=== PATIENT | female | born 1975 | race American Indian/Alaskan Native ===

== ENCOUNTER 2018-08-03 10:32 | Emergency (ER) | payer SELFPAY ==
[2018-08-03 10:59] VITALS: BP 123/86
== END 2018-08-03 14:25 | disposition left against medical advice (07) ==
LOC: ED 10:32
DX: R07.89 Other chest pain (principal); Z53.21 Procedure and treatment not carried out due to patient leaving prior to being seen by health care provider
CPT/HCPCS: 93005; 93010

== ENCOUNTER 2018-12-19 21:16 | Emergency (ER) | payer OTHER ==
--- NOTE | 2018-12-19 21:30 | Event Note ---
ED Screening Note Date of service: 12/19/18 Time: 21:29 ED Screening Note: 42 y/o female c/o NIXON since . History of migraines. pain 8.5/10. This initial assessment/diagnostic orders/clinical plan/treatment(s) is/are subject to change based on patients health status, clinical progression and re- assessment by fellow clinical providers in the ED. Further treatment and workup at subsequent clinical providers discretion. Patient/guardian urged not to elope from the ED as their condition may be serious if not clinically assessed and managed. Initial orders include:
[2018-12-20] MEDS ORDERED: TORADOL IM ONE (00:08)
[2018-12-20] MEDS ORDERED: BENADRYL PO ONE (00:08)
[2018-12-20] MEDS ORDERED: REGLAN PO ONE (00:08)
--- NOTE | 2018-12-20 00:08 | Emergency Department Report ---
ED Headache HPI - General Chief Complaint: Headache Stated Complaint: MIRGRAINE/NAUSEA Time Seen by Provider: 12/19/18 23:59 - History of Present Illness Initial Comments: Patient is a 42-year-old female who presents to the emergency Department with complaints of a frontal headache that began 2 days ago. She states she has a past medical history of migraines and ran out of her Fioricet. she states she recently moved here and has not found a PCP. She has associated photophobia, nausea, one episode of emesis. She does not report any neck stiffness or fever. She states this headache feels exactly the same as her previous migraines. She denies any vision changes, numbness, weakness. her only other PMHx is anxiety. allergy to PCN. LNMP: december 16 Allergies/Adverse Reactions: Allergies Penicillins Allergy (Verified 08/03/18 10:56) Hives Home Medications: Ambulatory Orders Butalb/Acetaminophen/Caffeine [Fioricet 50-300-40 mg CAP] 1 cap PO Q8HR PRN #14 cap 12/20/18 ED Review of Systems ROS: Stated complaint: MIRGRAINE/NAUSEA Other details as noted in HPI Comment: All other systems reviewed and negative ED Past Medical Hx - Past Medical History Previous Medical History?: Yes Hx Headaches / Migraines: Yes Additional medical history: Hernia - Surgical History Past Surgical History?: Yes Additional Surgical History: C sect x 3, tumtuck, right ankle, 2 Hernia repairs - Social History Smoking Status: Never Smoker Substance Use Type: None - Medications Home Medications: Home Medications Medication Instructions Recorded Confirmed Last Taken Type Butalb/Acetaminophen/Caffeine 1 cap PO Q8HR PRN #14 cap 12/20/18 Unknown Rx [Fioricet 50-300-40 mg CAP] ED Physical Exam - General Limitations: No Limitations General appearance: alert, in no apparent distress - Head Head exam: Present: atraumatic, normocephalic - Eye Eye exam: Present: normal appearance, PERRL, EOMI. Absent: nystagmus - ENT ENT exam: Present: mucous membranes moist - Neck Neck exam: Present: full ROM. Absent: meningismus - Respiratory Respiratory exam: Present: normal lung sounds bilaterally. Absent: respiratory distress, wheezes, rales, rhonchi, stridor, chest wall tenderness, accessory muscle use, decreased breath sounds, prolonged expiratory - Cardiovascular Cardiovascular Exam: Present: regular rate, normal rhythm, normal heart sounds. Absent: systolic murmur, diastolic murmur, rubs, gallop - Neurological Exam Neurological exam: Present: alert, oriented X3, CN II-XII intact, normal gait, other (equal rn orthopaedic strength, 5/5 strength in the BUE/BLE, sensation intact throughout, no focal neuro deficit). Absent: motor sensory deficit - Psychiatric Psychiatric exam: Present: normal affect, normal mood - Skin Skin exam: Present: warm, dry, intact ED Course Vital Signs 12/19/18 12/20/18 21:30 01:07 Temperature 98.1 F Pulse Rate 82 73 Respiratory 18 18 Rate Blood Pressure 137/87 Blood Pressure 115/85 [Right] O2 Sat by Pulse 100 100 Oximetry - Reevaluation(s) Reevaluation #1: 12/20/18 00:55 NIXON resolved s/p medications ED Medical Decision Making - Medical Decision Making Patient is a 42-year-old female who presents to the emergency Department with complaints of a frontal headache that began 2 days ago. She states she has a past medical history of migraines and ran out of her Fioricet. she states she recently moved here and has not found a PCP. She has associated photophobia, nausea, one episode of emesis. She does not report any neck stiffness or fever. She states this headache feels exactly the same as her previous migraines. She denies any vision changes, numbness, weakness. her only other PMHx is anxiety. allergy to PCN. LNMP: december 16. on exam: PERRL, no meningeal signs, no focal neuro deficit. pt given toradol, benadryl, and reglan and symptoms improved. pt given refill of her fioricet. advised to please take medication as prescribed as needed. Future refills of your fioricet will need to be done through primary care doctor. Follow up with a primary care doctor in the next 2-3 days. Return to the emergency room for any new or worsening symptoms. Critical care attestation.: If time is entered above; I have spent that time in minutes in the direct care of this critically ill patient, excluding procedure time. ED Disposition Clinical Impression: Headache Qualifiers: Headache type: unspecified Headache chronicity pattern: acute headache Intractability: not intractable Qualified Code(s): R51 - Headache Disposition: DC-01 TO HOME OR SELFCARE Is pt being admited?: No Does the pt Need Aspirin: No Condition: Stable Instructions: Acute Headache (ED) Additional Instructions: Please take medication as prescribed as needed. Future refills of your fioricet will need to be done through primary care doctor. Follow up with a primary care doctor in the next 2-3 days. Return to the emergency room for any new or worsening symptoms. Prescriptions: Butalb/Acetaminophen/Caffeine [Fioricet 50-300-40 mg CAP] 1 cap PO Q8HR PRN #14 cap PRN Reason: Headache Referrals: [facility] [Outside] - 2-3 Days [facility] [Provider Group] - 2-3 Days [facility] [Outside] - 2-3 Days Time of Disposition: 00:56 Print Language: GREEK
[2018-12-20 01:08] VITALS: BP 115/85
== END 2018-12-20 01:08 | disposition home or self-care (01) ==
LOC: ED 21:16
DX: G43.909 Migraine, unspecified, not intractable, without status migrainosus (principal); Z88.0 Allergy status to penicillin
CPT/HCPCS: 96372; 99282; J1885

== ENCOUNTER 2018-12-31 19:42 | Emergency (ER) | payer SELFPAY ==
--- NOTE | 2018-12-31 20:05 | Event Note ---
ED Screening Note ED Screening Note: pt presents with substernal CP that began this morning states it feels like a stabbing pain states she feel like she is having to take deep breaths has had increased stress, missing her children no N/V/D LNMP: three weeks ago never had CP before no PMHx allergy: PCN non smoker non drinker no drug use This initial assessment/diagnostic orders/clinical plan/treatment(s) is/are subject to change based on patients health status, clinical progression and re- assessment by fellow clinical providers in the ED. Further treatment and workup at subsequent clinical providers discretion. Patient/guardian urged not to elope from the ED as their condition may be serious if not clinically assessed and managed. Initial orders include: CP protocol
[2018-12-31 20:13] VITALS: BP 109/79
[2018-12-31 20:23] LABS: Basophils # (Auto) 0.1 K/mm3 (0.0-0.1); Basophils % (Auto) 0.8 % (0.0-1.8); Eosinophils # (Auto) 0.1 K/mm3 (0.0-0.4); Eosinophils % (Auto) 0.9 % (0.0-4.3); Hematocrit 29.1 % (30.3-42.9); Hemoglobin 9.8 gm/dl (10.1-14.3); Lymphocytes # (Auto) 3.4 K/mm3 (1.2-5.4); Lymphocytes % (Auto) 49.3 % (13.4-35.0); Mean Corpuscular HGB Conc 34 % (30-34); Mean Corpuscular Volume 83 fl (79-97); Monocytes # (Auto) 0.6 K/mm3 (0.0-0.8); Monocytes % (Auto) 8.2 % (0.0-7.3); Platelet Count 397 K/mm3 (140-440); Red Cell Distribution Width 17.2 % (13.2-15.2)
[2018-12-31 20:46] LABS: Alanine Aminotransferase 9 units/L (7-56); Albumin 3.7 g/dL (3.9-5); BUN/Creatinine Ratio 11; Blood Urea Nitrogen 8 mg/dL (7-17); Calcium 8.6 mg/dL (8.4-10.2); Hemolysis Index 10
--- NOTE | 2018-12-31 21:17 | XRay Report ---
CHEST 2 VIEWS INDICATION / CLINICAL INFORMATION: Chest Pain. COMPARISON: None available. FINDINGS: SUPPORT DEVICES: None. HEART / MEDIASTINUM: No significant abnormality. LUNGS / PLEURA: No significant pulmonary or pleural abnormality. No pneumothorax. ADDITIONAL FINDINGS: No significant additional findings. IMPRESSION: 1. No acute findings. Signer Name: Melvin Pérez MD Signed: 12/31/2018 9:13 PM Workstation Name: [id number]
[2018-12-31] MEDS ORDERED: LIDOCAINE VISCOUS 2% PO ONE (21:48)
[2018-12-31] MEDS ORDERED: IBUPROFEN PO ONE (21:48)
[2018-12-31] MEDS ORDERED: PEPCID PO ONE (21:48)
[2018-12-31] MEDS ORDERED: ALUM-MAG HYDROX-SIMETH 200-200-20MG/5ML PO ONE (21:48)
[2018-12-31] MEDS ORDERED: VISTARIL PO ONE (21:49)
--- NOTE | 2018-12-31 22:05 | Emergency Department Report ---
ED Chest Pain HPI - General Chief Complaint: Chest Pain Stated Complaint: CP/LEFT ARM PAIN Time Seen by Provider: 12/31/18 20:02 Source: patient Mode of arrival: Ambulatory Limitations: No Limitations - History of Present Illness Initial Comments: Patient is a 43-year-old -[place] female with a history of chronic migraine headaches who presents to the ED complaining of acute onset persistent substernal chest pain constantly for the last 12 hours. Patient admits that she has been having a stressful period because of that and the family and being from her children, and that she has been crying all day making the chest pain worse. Patient denies dizziness, nausea, vomiting, abdominal pain, diaphoresis, neck pain, headache, shortness of breath, back pain, numbness and tingling of upper and lower extremities bilaterally, fever or chills, sore throat or cough. Patient also denies any lifting, traumatic injury or fall. Patient states that she does not smoke or use any contraceptives. MD Complaint: chest pain, other (anxiety and stress situations) -: Sudden, hour(s) (12) Onset: during rest, awoke with symptoms, other (with crying) Pain Location: substernal Pain Radiation: none Severity: moderate Severity scale (0 -10): 5 Quality: tightness, aching, sharp Consistency: constant Improves With: nothing Worsens With: palpation, movement, other (crying) Context: other (crying or palpation) re: other (stressful and anxious moments in the family). denies: nausea, vomting, diaphoresis, dyspnea, sense of impending doom Other Symptoms: denies: cough, fever, syncope, rash, acid taste in mouth, leg swelling, palpitations, burping, other Treatments Prior to Arrival: none Aspirin use within the Past 7 Days: (0) No - Related Data On Oral Contraceptives: No Previous Rx's Medication Instructions Recorded Last Taken Type Butalb/Acetaminophen/Caffeine 1 cap PO Q8HR PRN #14 cap 12/20/18 Unknown Rx [Fioricet 50-300-40 mg CAP] Naproxen [Naprosyn] 500 mg PO Q12H PRN #20 tablet 12/31/18 Unknown Rx Ranitidine HCl [Zantac] 150 mg PO Q12H #30 tablet 12/31/18 Unknown Rx hydrOXYzine PAMOATE [Vistaril] 25 mg PO Q6HR PRN #30 capsule 12/31/18 Unknown Rx Allergies Allergy/AdvReac Type Severity Reaction Status Date / Time Penicillins Allergy Hives Verified 12/31/18 20:13 Heart Score - HEART Score History: Slightly suspicious EKG: Normal Age: < 45 Risk factors: No known risk factors Troponin: < normal limit HEART Score: 0 - Critical Actions Critical Actions: 0-3 pts:0.9-1.7%risk of adverse cardiac event.Candidate for discharge ED Review of Systems ROS: Stated complaint: CP/LEFT ARM PAIN Other details as noted in HPI Constitutional: denies: chills, fever Eyes: denies: eye pain, eye discharge, vision change ENT: denies: ear pain, throat pain Respiratory: denies: cough, shortness of breath, SOB with exertion, SOB at rest, wheezing Cardiovascular: chest pain. denies: palpitations, dyspnea on exertion, edema, syncope, paroxysmal nocturnal dyspnea Endocrine: no symptoms reported. denies: see HPI, flushing, increased hunger, increased thirst, unexplained weight gain, unexplained weight loss Gastrointestinal: denies: abdominal pain, nausea, diarrhea Genitourinary: denies: urgency, dysuria, discharge Musculoskeletal: denies: back pain, joint swelling, arthralgia Skin: denies: rash, lesions Neurological: denies: headache, weakness, paresthesias Psychiatric: denies: anxiety, depression Hematological/Lymphatic: denies: easy bleeding, easy bruising ED Past Medical Hx - Past Medical History Previous Medical History?: Yes Hx Headaches / Migraines: Yes Additional medical history: Hernia - Surgical History Past Surgical History?: Yes Additional Surgical History: C sect x 3, tumtuck, right ankle, 2 Hernia repairs - Social History Smoking Status: Unknown if ever smoked - Medications Home Medications: Home Medications Medication Instructions Recorded Confirmed Last Taken Type Butalb/Acetaminophen/Caffeine 1 cap PO Q8HR PRN #14 cap 12/20/18 Unknown Rx [Fioricet 50-300-40 mg CAP] Naproxen [Naprosyn] 500 mg PO Q12H PRN #20 tablet 12/31/18 Unknown Rx Ranitidine HCl [Zantac] 150 mg PO Q12H #30 tablet 12/31/18 Unknown Rx hydrOXYzine PAMOATE [Vistaril] 25 mg PO Q6HR PRN #30 capsule 12/31/18 Unknown Rx ED Physical Exam - General Limitations: No Limitations General appearance: alert, in no apparent distress - Head Head exam: Present: atraumatic, normocephalic, normal inspection - Eye Eye exam: Present: normal appearance, PERRL, EOMI. Absent: scleral icterus, conjunctival injection, nystagmus, periorbital swelling Pupils: Present: normal accommodation - ENT ENT exam: Present: normal exam, normal orophraynx, mucous membranes moist, TM's normal bilaterally, normal external ear exam - Neck Neck exam: Present: normal inspection, full ROM. Absent: tenderness, lymphadenopathy, thyromegaly - Respiratory Respiratory exam: Present: normal lung sounds bilaterally, chest wall tenderness (Anterior chest wall tenderness with palpation). Absent: respiratory distress, wheezes, rales, rhonchi - Cardiovascular Cardiovascular Exam: Present: regular rate, normal rhythm. Absent: systolic murmur, diastolic murmur, rubs, gallop - GI/Abdominal GI/Abdominal exam: Present: soft, normal bowel sounds. Absent: distended, tenderness, guarding, hyperactive bowel sounds, hypoactive bowel sounds - Rectal Rectal exam: Present: deferred - Extremities Exam Extremities exam: Present: normal inspection, full ROM, normal capillary refill - Back Exam Back exam: Present: normal inspection, full ROM. Absent: tenderness, muscle spasm, paraspinal tenderness, vertebral tenderness - Neurological Exam Neurological exam: Present: alert, oriented X3, CN II-XII intact, normal gait, reflexes normal - Psychiatric Psychiatric exam: Present: normal affect, normal mood - Skin Skin exam: Present: warm, dry, intact, normal color. Absent: rash ED Course Vital Signs 12/31/18 20:12 Temperature 98.1 F Pulse Rate 66 Respiratory 18 Rate Blood Pressure 109/79 [Right] O2 Sat by Pulse 99 Oximetry - Reevaluation(s) Reevaluation #1: 12/31/18 22:26 Patient is alert and oriented 3 and is not in distress with normal vital signs. EKG shows normal sinus rhythm with ventricular rate of [address] or T- wave abnormalities. Chest x-ray shows no acute cardiopulmonary abnormalities. Lab test results were reviewed and are all unremarkable. Patient was treated for pain, anxiety and also given antacids to help with her pain. On reevaluation, patient's pain is well-controlled, and patient will be sent home on medications and advised to follow-up with her primary care physician in 5-7 days for reevaluation or return to the ED immediately if symptoms get worse. ANASTASIA score - Anastasia Score Age > 65: (0) No Aspirin use within the Past 7 Days: (0) No 3 or more CAD Risk Factors: (0) No 2 or more Angina events in past 24 hrs: (0) No Known CAD with more than 50% Stenosis: (0) No Elevated Cardiac Markers: (0) No ST Deviation Greater than 0.5mm: (0) No ANASTASIA Score: 0 ED Medical Decision Making - Lab Data Result diagrams: 12/31/18 20:13 12/31/18 20:13 - EKG Data EKG shows normal: sinus rhythm Rate: normal - EKG Data Interpretation: normal EKG 12/31/18 22:28 Normal sinus rhythm, ventricular rate of [address] or T wave abnormalities - Radiology Data Radiology results: report reviewed, image reviewed Chest x-ray shows no acute cardiopulmonary abnormalities - Medical Decision Making Patient is alert and oriented 3 and is not in distress with normal vital signs. EKG shows normal sinus rhythm with ventricular rate of [address] or T- wave abnormalities. Chest x-ray shows no acute cardiopulmonary abnormalities. Lab test results were reviewed and are all unremarkable. Patient was treated f or pain, anxiety and also given antacids to help with her pain. On reevaluation, patient's pain is well-controlled, and patient will be sent home on medications and advised to follow-up with her primary care physician in 5-7 days for reevaluation or return to the ED immediately if symptoms get worse. Critical care attestation.: If time is entered above; I have spent that time in minutes in the direct care of this critically ill patient, excluding procedure time. ED Disposition Clinical Impression: Anxiety as acute reaction to exceptional stress, Muscle strain of anterior chest wall, Nonspecific chest pain GERD (gastroesophageal reflux disease) Qualifiers: Esophagitis presence: without esophagitis Qualified Code(s): K21.9 - Gastro- esophageal reflux disease without esophagitis Disposition: TO HOME OR SELFCARE Is pt being admited?: No Does the pt Need Aspirin: No Condition: Stable Instructions: Chest Pain (ED), Muscle Strain (ED), Costochondritis (ED), Anxiety (ED), Gastroesophageal Reflux Disease (ED) Additional Instructions: Take medications with food, drink plenty of fluids and follow-up with the primary care physician in 7-10 days for reevaluation. Return to the ED immediat tani if symptoms get worse. Prescriptions: Naproxen [Naprosyn] 500 mg PO Q12H PRN #20 tablet PRN Reason: Pain , Severe (7-10) hydrOXYzine PAMOATE [Vistaril] 25 mg PO Q6HR PRN #30 capsule PRN Reason: Anxiety Ranitidine HCl [Zantac] 150 mg PO Q12H #30 tablet Referrals: [facility] [Outside] - 3-5 Days Time of Disposition: 22:20 Print Language: SYRIAC
== END 2018-12-31 22:40 | disposition home or self-care (01) ==
LOC: ED 19:42
DX: S29.011A Strain of muscle and tendon of front wall of thorax, initial encounter (principal); G43.709 Chronic migraine without aura, not intractable, without status migrainosus; F43.0 Acute stress reaction; K21.9 Gastro-esophageal reflux disease without esophagitis; Z88.0 Allergy status to penicillin; Z98.890 Other specified postprocedural states; Z79.899 Other long term (current) drug therapy; X58.XXXA Exposure to other specified factors, initial encounter; Y93.89 Activity, other specified; Y92.89 Other specified places as the place of occurrence of the external cause; Y99.8 Other external cause status
CPT/HCPCS: 36415; 71046; 80053; 84484; 84703; 85025; 93005; 93010; 99284; Q0177